=== PATIENT | female | born 1965 | race Caucasian/White ===

== ENCOUNTER 2024-04-21 11:57 | Outpatient (CLI) | payer BC, SELFPAY ==
[2024-04-23 19:12] LABS: Calprotectin, Fecal 73 ug/g (0-120)
== END 2024-04-21 23:59 | disposition home or self-care (01) ==
LOC: LAB 11:59
PROVIDERS: PCP Nurse Practitioner Family; Visit Provider Internal Medicine Gastroenterology
DX: K50.10 Crohn's disease of large intestine without complications (principal)
CPT/HCPCS: 83993